=== PATIENT | female | born 1990 | race Caucasian/White ===

== ENCOUNTER → 2016-10-20 | Outpatient (CLI) | payer OTHER ==
[~2016-10-20] MED LIST: CETI10TA PO; CIPR-250 PO; DIAM500C PO; DRIS50002 PO; ESOM0.1C PO; LOSA50TA20 PO; MULTCAP PO; NORC1TAB4 PO
[2016-10-20 12:51] LABS: BASO % 0.3 % (0.0-1.0); EOS # 0.1 K/mm3 (0.0-0.50); EOS % 1.5 % (0.0-3.0); LARGE UNSTAINED CELL # 0.2 K/mm3 (0.0-0.4); LARGE UNSTAINED CELL % 2.2 % (0.0-4.0); LYMPH # 2.2 K/mm3 (1.5-6.5); LYMPH % 30.1 % (24.0-44.0); MEAN CORPUSCULAR HEMOGLOBIN 26.9 pg (27.0-33.0); MEAN CORPUSCULAR HGB CONC 33.5 g/dl (32.0-36.5); MEAN CORPUSCULAR VOLUME 80.3 fl (80.0-96.0); MONO # 0.3 K/mm3 (0.0-0.8); MONO % 4.4 % (0.0-5.0); NEUTROPHILS # 4.2 K/mm3 (1.8-7.7); NEUTROPHILS % 61.5 % (36.0-66.0); PLATELET COUNT, AUTOMATED 353 k/mm3 (150-450); RED CELL DISTRIBUTION WIDTH 14.5 % (11.5-14.5); WHITE BLOOD COUNT 6.8 K/mm3 (4.0-10.0)
[2016-10-20 14:05] LABS: ERYTHROCYTE SEDIMENTATION RATE 52 mm/hr (0-20)
== END ==
LOC: M LAB 12:25
PROVIDERS: ATTEND Neurological Surgery
DX: G93.2 Benign intracranial hypertension (principal)

== ENCOUNTER → 2016-11-03 | Outpatient (CLI) | payer OTHER ==
--- NOTE | 2016-11-03 15:58 | REP ---
Clinical: Intracranial hypertension with peritoneal shunt. Comparison: 04/07/2016. Findings: Lung bases demonstrate minimal scarring in the lingula with small calcified granuloma. Visualized heart and pericardium normal. The liver is enlarged. The spleen, pancreas, gallbladder, bilateral adrenal glands and kidneys are normal. The enteric system is without obstruction or acute inflammatory process. Normal terminal ileum and appendix identified in the right lower quadrant. Pelvis demonstrates an 8 cm midline cystic structure compressing the bladder. The uterus is normal. Small amount of free fluid identified in the deep pelvis. A shunt is identified from the epidural space at the L2 level extending into the posterolateral subcutaneous tissues and entering the abdomen along the right lateral mid abdomen and extending into the pelvis adjacent to the above-mentioned cystic structure. A 2 cm fat containing periumbilical hernia is noted. No free air. No obvious adenopathy. Impression: 1. Shunt remains stable and extends from L2 into the pelvis. 2. Stable 8 cm midline cystic mass superior and compressing the bladder. 3. Hepatomegaly. 4. 2 cm fat containing periumbilical hernia. Signed by Sandip Cedeno MD 11/03/2016 03:49 P
== END ==
LOC: M RAD 15:19
PROVIDERS: ATTEND Neurological Surgery
DX: G93.2 Benign intracranial hypertension (principal); H47.11 Papilledema associated with increased intracranial pressure; K42.9 Umbilical hernia without obstruction or gangrene; R16.0 Hepatomegaly, not elsewhere classified; Z98.2 Presence of cerebrospinal fluid drainage device

== ENCOUNTER → 2017-01-06 | Day surgery (SDC) | payer OTHER ==
[~2017-01-06] VITALS: Ht 160 cm; Wt 95.3 kg
[~2017-01-06] MED LIST changes: +BUPIVACAINE HCL 0.25% 30 ML VIAL As Ordered ONE; +GLYCOPYRROLATE INJ 0.2 MG/ML 2 ML VIAL As Ordered ONE; +HYDROmorphone HCL 2 MG/ML 1ML VIAL (J1170) As Ordered ONE; +KETOROLAC 60 MG/2 ML VIAL (J1885) As Ordered ONE; +LABETALOL HCL 100 MG/20 ML VIAL As Ordered ONE; +LABETALOL HCL 100 MG/20 ML VIAL IV SCH; +LIDOCAINE 1% SDV 5 ML VIAL SQ ONE; +LIDOCAINE 2% INJ 100 MG/5 ML SDV (FOR ANES.) As Ordered ONE; +LR 1,000 ML IV ONE; +LR 1,000 ML IV SCH; +MEPERIDINE INJ 25 MG/ML VIAL (J2175) IV PRN; +METOCLOPRAMIDE INJ 10MG/2ML VIAL (J2765) IV PRN; +MIDAZOLAM INJ 2 MG/2 ML VIAL (J2250) As Ordered ONE; +NEOSTIGMINE 1MG/ML 5 ML SYRINGE (J2710) As Ordered ONE; +ONDANSETRON 4MG/2ML VIAL (J2405) As Ordered ONE; +ONDANSETRON 4MG/2ML VIAL (J2405) IV PRN; +PERCOCET 5MG/325MG TAB PO PRN; +PROPOFOL 200 MG/20 ML VIAL As Ordered ONE; +ROCURONIUM BROMIDE 50 MG/5 ML VIAL/SYRINGE As Ordered ONE; +ceFAZolin 1GM INJ (J0690) As Ordered ONE; +dexameTHASONE 4 MG/ML 1ML VIAL (J1100) As Ordered ONE; +fentaNYL 100 MCG/2 ML INJECTION (J3010) IV PRN; +fentaNYL 250 MCG/5 ML INJECTION (J3010) As Ordered ONE
[2017-01-06 08:13] LABS: MEAN CORPUSCULAR HEMOGLOBIN 28.2 pg (27.0-33.0); MEAN CORPUSCULAR HGB CONC 34.1 g/dl (32.0-36.5); MEAN CORPUSCULAR VOLUME 82.7 fl (80.0-96.0); RED CELL DISTRIBUTION WIDTH 14.4 % (11.5-14.5); WHITE BLOOD COUNT 10.4 K/mm3 (4.0-10.0)
[2017-01-06 08:28] LABS: CONTROL LINE HCG INT CTR LINE PRESENT
[2017-01-06 12:10] VITALS: BP 162/80
[2017-01-06 14:50] VITALS: BP 126/64
== END | disposition home or self-care (01) ==
LOC: M SDC 07:44
PROVIDERS: ATTEND Obstetrics & Gynecology
DX: D27.9 Benign neoplasm of unspecified ovary (principal); I10 Essential (primary) hypertension; G93.2 Benign intracranial hypertension; K21.9 Gastro-esophageal reflux disease without esophagitis; D64.9 Anemia, unspecified; G43.909 Migraine, unspecified, not intractable, without status migrainosus; Z79.899 Other long term (current) drug therapy
CPT/HCPCS: 36415; 58661; 84703; 85027; 86850; 86900; 86901; 88307; J0690; J1100; J1170; J1885; J2250; J2405; J2710; J2765; J3010